=== PATIENT | female | born 1995 | race Two or more races ===

== ENCOUNTER 2017-10-03 17:57 | Emergency (ER) | payer MEDICAID, OTHER ==
[~2017-10-03] VITALS: Ht 160 cm; Wt 49.4 kg
[2017-10-03 18:01] VITALS: BP 133/85
[2017-10-03] MEDS ORDERED: ONDANSETRON ODT 4 MG ONE (18:42)
[2017-10-03] MEDS ORDERED: ONDANSETRON ODT 4 MG PO ONE (19:00)
[2017-10-03 19:09] LABS: BASOPHILS # (AUTO) 0.04 x10^3/uL (0-0.3); BASOPHILS % (AUTO) 0 % (0-1); EOSINOPHILS % (AUTO) 0 % (1-7); HCG UR SG 1.035 (1.003-1.030); LYMPHOCYTES # (AUTO) 1.41 x10^3/uL (1-6.1); LYMPHOCYTES % (AUTO) 16 % (22-44); MD NO; MEAN CORPUSCULAR HEMOGLOBIN 28.6 pg (27.0-34.8); MEAN CORPUSCULAR HGB CONC 33.8 g/dL (32.4-35.8); MEAN CORPUSCULAR VOLUME 84.6 fL (80-100); MEAN PLATELET VOLUME 8.1 fL (7.4-10.4); MONOCYTES # (AUTO) 0.41 x10^3/uL (0-1.4); MONOCYTES % (AUTO) 5 % (2-9); NEUTROPHILS # (AUTO) 7.26 x10^3/uL (1.8-8.0); NEUTROPHILS % (AUTO) 80 % (42-75); PLATELET COUNT 412 x10^3/uL (130-400); RED BLOOD COUNT 5.63 x10^6/uL (3.82-5.3); RED CELL DISTRIBUTION WIDTH 14.5 % (9.6-15.2)
[2017-10-03 19:19] LABS: ALANINE AMINOTRANSFERASE 15 U/L (12-78); ALBUMIN 4.6 g/dL (3.4-5.0); ANION GAP 10 mmol/L (5-15); CALCIUM 9.5 mg/dL (8.5-10.1); CHLORIDE 105 mmol/L (98-107); CREATININE 0.93 mg/dL (0.55-1.02)
[2017-10-03 19:21] LABS: ALKALINE PHOSPHATASE 101 U/L (45-117); BILIRUBIN,TOTAL 0.6 mg/dL (0.2-1.0)
== END 2017-10-03 19:52 | disposition home or self-care (01) ==
LOC: ED 19:15
DX: R11.2 Nausea with vomiting, unspecified (principal); Z33.1 Pregnant state, incidental
CPT/HCPCS: 36415; 80053; 81025; 83690; 85025; 99284; Q0162

== ENCOUNTER 2019-09-20 18:43 | Emergency (ER) | payer MEDICAID ==
[~2019-09-20] VITALS: Ht 162.6 cm; Wt 53.3 kg
--- NOTE | 2019-09-20 18:55 | NUR ---
PT TO ED FROM [facility]. FREQUENCY/DYSURIA/HEMATURIA. DENIES FLANK PAIN/FEVER/CHILLS. C/O SOME NAUSEA NO VOMITING. ABD SNT. DENIES HX KIDNEY STONES. AMBULATORY. URINE COLLECTED. VSS CALL PATEL IN REACH.
[2019-09-20 18:58] VITALS: BP 121/83
[2019-09-20 19:28] LABS: HCG UR SG 1.026 (1.003-1.030); MICROSCOPIC AUTO
[2019-09-20 19:35] LABS: CULTURE INDICATED? YES
--- NOTE | 2019-09-20 19:41 | NUR ---
pt resting in bed no complaints at this time call mathews in reach. recheck. as
[2019-09-20] MEDS ORDERED: PHENAZOPYRIDINE 200 MG TABLET ONE (19:50)
[2019-09-20] MEDS ORDERED: NITROFURANTOIN (MACROBID) 100 MG CAPSULE ONE (19:50)
[2019-09-20] MEDS ORDERED: IBUPROFEN 200 MG TABLET ONE (19:50)
[2019-09-20] MEDS ORDERED: IBUPROFEN 200 MG TABLET PO ONE (20:00)
[2019-09-20] MEDS ORDERED: PHENAZOPYRIDINE 200 MG TABLET PO ONE (20:00)
[2019-09-20] MEDS ORDERED: NITROFURANTOIN (MACROBID) 100 MG CAPSULE PO ONE (20:00)
== END 2019-09-20 20:00 | disposition home or self-care (01) ==
LOC: ED 19:50
DX: N30.01 Acute cystitis with hematuria (principal)
CPT/HCPCS: 81001; 81025; 87077; 87086; 87186; 99284

== ENCOUNTER 2020-12-08 20:48 | Emergency (ER) | payer MEDICAID ==
[~2020-12-08] VITALS: Ht 162.6 cm; Wt 52.6 kg
[2020-12-08 20:49] VITALS: BP 116/98
== END 2020-12-08 21:51 | disposition home or self-care (01) ==
LOC: ED 21:40
DX: T19.2XXA Foreign body in vulva and vagina, initial encounter (principal); X58.XXXA Exposure to other specified factors, initial encounter; Y93.89 Activity, other specified; Y92.89 Other specified places as the place of occurrence of the external cause; Y99.8 Other external cause status
CPT/HCPCS: 99284